=== PATIENT | female | born 1955 | race Caucasian/White ===

== ENCOUNTER → 2017-12-16 | Outpatient (CLI) | payer OTHER ==
[~2017-12-16] MED LIST: B12/1CAP; BP MED; LISI-552 PO; PRM25T PO
== END ==
LOC: CARD 09:58
PROVIDERS: ATTEND Nurse Practitioner Family
DX: R07.9 Chest pain, unspecified (principal); R00.2 Palpitations
CPT/HCPCS: 93005

== ENCOUNTER → 2017-12-16 | Outpatient (CLI) | payer OTHER ==
[2017-12-16 11:00] LABS: BASOPHILS % (AUTO) 0 % (0-10); EOSINOPHILS # (AUTO) 0.1 10^3/uL (0.0-0.3); EOSINOPHILS % (AUTO) 1 % (0-10); HEMATOCRIT 36 % (35-52); HEMOGLOBIN 12.5 G/DL (11.5-16.0); LYMPHOCYTES % (AUTO) 49 % (12-44); MEAN CORPUSCULAR HEMOGLOBIN 33 PG (25-34); MEAN CORPUSCULAR HGB CONC 34 G/DL (32-36); MEAN CORPUSCULAR VOLUME 97 FL (80-99); MEAN PLATELET VOLUME 12.6 FL (7.4-10.4); MONOCYTES # (AUTO) 0.4 X 10^3 (0.0-1.0); MONOCYTES % (AUTO) 10 % (0-12); NEUTROPHILS # (AUTO) 1.7 X 10^3 (1.8-7.8); NEUTROPHILS % (AUTO) 40 % (42-75); PLATELET COUNT 177 10^3/uL (130-400); RED BLOOD COUNT 3.74 10^6/uL (4.35-5.85); RED CELL DISTRIBUTION WIDTH 12.2 % (10.0-14.5); WHITE BLOOD COUNT 4.1 10^3/uL (4.3-11.0)
[2017-12-16 11:21] LABS: ALANINE AMINOTRANSFERASE 18 U/L (0-55); ALBUMIN 4.6 GM/DL (3.2-4.5); ALKALINE PHOSPHATASE 59 U/L (40-136); BILIRUBIN,TOTAL 0.6 MG/DL (0.1-1.0); BUN/CREATININE RATIO 19; CALCIUM 9.8 MG/DL (8.5-10.1); CARBON DIOXIDE 26 MMOL/L (21-32); CHLORIDE 103 MMOL/L (98-107); CHOLESTEROL 245 MG/DL (< 200); CREATINE KINASE 58 U/L (29-168); CREATININE SERUM 0.62 MG/DL (0.60-1.30); GFR ESTIMATED > 60; GLUCOSE 96 MG/DL (70-105); HDL CHOLESTEROL 89 MG/DL (40-60); POTASSIUM 4.1 MMOL/L (3.6-5.0); SODIUM 139 MMOL/L (135-145); TOTAL PROTEIN 7.3 GM/DL (6.4-8.2); TRIGLYCERIDES 77 MG/DL (<150); VLDL CHOLESTEROL 15 MG/DL (5-40)
[2017-12-16 11:55] LABS: ERYTHROCYTE SEDIMENTATION RATE 17 MM/HR (0-30)
== END ==
LOC: LAB 10:42
PROVIDERS: ATTEND Urology
DX: D64.9 Anemia, unspecified (principal); R07.9 Chest pain, unspecified; M79.1 Myalgia
CPT/HCPCS: 36415; 80053; 80061; 82550; 82728; 83540; 84443; 84484; 85025; 85652; 86038; 86060; 86430

== ENCOUNTER 2019-10-23 13:12 | Emergency (ER) | payer SELFPAY ==
[~2019-10-23] VITALS: Ht 172.7 cm; Wt 72.7 kg
[2019-10-23] MEDS ORDERED: ASPIRIN 81 MG CHEW (CHILDREN'S ASA) PO ONE (13:30)
--- NOTE | 2019-10-23 13:33 | NUR ---
Attempted to contact pt via phone [phone]) [phone] with no answer.
[2019-10-23] MEDS ORDERED: NS IV 1000 ML 1,000 ML IV SCH (13:45)
[2019-10-23] MEDS ORDERED: ONDANSETRON 4 MG/2 ML (SDV) Z0FRAN IVP ONE (13:45)
[2019-10-23] MEDS ORDERED: KETOROLAC 30 MG/ML VIAL IVP ONE (13:45)
--- NOTE | 2019-10-23 13:45 | ED General ---
General Stated Complaint: COUGH Source of Information: Patient Exam Limitations: No Limitations History of Present Illness Date Seen by Provider: Oct 23, 2019 Time Seen by Provider: 13:43 Initial Comments to ER with reports of cough,shortness of breath, upper mid back pain, nausea, diarrhea. Present for 3 days. Timing/Duration: 2-3 Days Severity: Moderate Associated Systoms: Cough, Nausea/Vomiting Allergies and Home Medications Allergies Coded Allergies: Penicillins (Unverified Allergy, Mild, 01/25/09) Home Medications Lisinopril 20 Mg Tablet, 20 MG PO DAILY, (Reported) Ondansetron 4 Mg Tab.rapdis, 4 MG PO Q4H PRN for NAUSEA/VOMITING Prescribed by: ALBER CUEVAS on 10/23/19 1446 Patient Home Medication List Home Medication List Reviewed: Yes Review of Systems Review of Systems Constitutional: see HPI EENTM: see HPI Respiratory: no symptoms reported Cardiovascular: no symptoms reported Genitourinary: no symptoms reported Musculoskeletal: no symptoms reported Skin: no symptoms reported Psychiatric/Neurological: No Symptoms Reported Hematologic/Lymphatic: No Symptoms Reported Immunological/Allergic: no symptoms reported Physical Exam Vital Signs Vital Signs - First Documented 10/23/19 13:35 Temp 37.1 Pulse 83 Resp 20 B/P (MAP) 160/80 (106) Pulse Ox 98 O2 Delivery Room Air Capillary Refill : Height, Weight, BMI Height: 5'6" Weight: 140lbs. oz. 63.122532bz; BMI Method:Stated General Appearance: No Apparent Distress, WD/WN Eyes: Bilateral Eye Normal Inspection, Bilateral Eye PERRL, Bilateral Eye EOMI Neck: Full Range of Motion, Normal Inspection Respiratory: No Accessory Muscle Use, No Respiratory Distress Cardiovascular: Regular Rate, Rhythm, Normal Peripheral Pulses Gastrointestinal: Normal Bowel Sounds, Non Tender, Soft Extremity: Normal Capillary Refill, Normal Inspection Neurologic/Psychiatric: Alert, Oriented x3 Skin: Normal Color, Warm/Dry Progress/Results/Core Measures Suspected Sepsis SIRS Temperature: Pulse: Respiratory Rate: Laboratory Tests 10/23/19 13:47: White Blood Count 8.1 Blood Pressure / Mean: Laboratory Tests 10/23/19 13:47: Creatinine 0.66, INR Comment 0.9, Platelet Count 178, Total Bilirubin 0.5 Results/Orders Lab Results Laboratory Tests Test 10/23/19 13:47 10/23/19 13:50 Range/Units White Blood Count 8.1 4.3-11.0 10^3/uL Red Blood Count 3.94 L 4.35-5.85 10^6/uL Hemoglobin 12.9 11.5-16.0 G/DL Hematocrit 37 35-52 % Mean Corpuscular Volume 95 80-99 FL Mean Corpuscular Hemoglobin 33 25-34 PG Mean Corpuscular Hemoglobin Concent 35 32-36 G/DL Red Cell Distribution Width 11.9 10.0-14.5 % Platelet Count 178 130-400 10^3/uL Mean Platelet Volume 13.1 H 7.4-10.4 FL Neutrophils (%) (Auto) 70 42-75 % Lymphocytes (%) (Auto) 22 12-44 % Monocytes (%) (Auto) 8 0-12 % Eosinophils (%) (Auto) 1 0-10 % Basophils (%) (Auto) 0 0-10 % Neutrophils # (Auto) 5.6 1.8-7.8 X 10^3 Lymphocytes # (Auto) 1.8 1.0-4.0 X 10^3 Monocytes # (Auto) 0.6 0.0-1.0 X 10^3 Eosinophils # (Auto) 0.0 0.0-0.3 10^3/uL Basophils # (Auto) 0.0 0.0-0.1 10^3/uL Prothrombin Time 12.5 12.2-14.7 SEC INR Comment 0.9 0.8-1.4 Activated Partial Thromboplast Time 27 24-35 SEC D-Dimer 0.49 0.00-0.49 UG/ML Sodium Level 135 135-145 MMOL/L Potassium Level 4.2 3.6-5.0 MMOL/L Chloride Level 100 98-107 MMOL/L Carbon Dioxide Level 21 21-32 MMOL/L Anion Gap 14 5-14 MMOL/L Blood Urea Nitrogen 14 7-18 MG/DL Creatinine 0.66 0.60-1.30 MG/DL Estimat Glomerular Filtration Rate > 60 BUN/Creatinine Ratio 21 Glucose Level 108 H 70-105 MG/DL Calcium Level 9.9 8.5-10.1 MG/DL Corrected Calcium 8.5-10.1 MG/DL Magnesium Level 1.8 1.6-2.4 MG/DL Total Bilirubin 0.5 0.1-1.0 MG/DL Aspartate Amino Transf (AST/SGOT) 21 5-34 U/L Alanine Aminotransferase (ALT/SGPT) 16 0-55 U/L Alkaline Phosphatase 67 40-136 U/L Myoglobin 25.9 10.0-92.0 NG/ML Troponin I < 0.028 <0.028 NG/ML B-Type Natriuretic Peptide 13.3 <100.0 PG/ML Total Protein 7.8 6.4-8.2 GM/DL Albumin 4.8 H 3.2-4.5 GM/DL Lipase 34 8-78 U/L My Orders Orders - ALBER CUEVAS APRN Cbc With Automated Diff (10/23/19 13:21) Magnesium (10/23/19 13:21) Chest 1 View, Ap/Pa Only (10/23/19 13:21) Ekg Tracing (10/23/19 13:21) Comprehensive Metabolic Panel (10/23/19 13:21) Myoglobin Serum (10/23/19 13:21) Protime With Inr (10/23/19 13:21) Partial Thromboplastin Time (10/23/19 13:21) O2 (10/23/19 13:21) Monitor-Rhythm Ecg Trace Only (10/23/19 13:21) Lipid Panel (10/24/19 06:00) Ed Iv/Invasive Line Start (10/23/19 13:21) BNP (10/23/19 13:21) Fibrin Degradation Products (10/23/19 13:21) Troponin I (10/23/19 13:21) Aspirin Chewable Tablet (Baby Aspirin Ch (10/23/19 13:30) Lipase (10/23/19 13:37) Ondansetron Injection (Zofran Injectio (10/23/19 13:45) Ketorolac Injection (Toradol Injection) (10/23/19 13:45) Ns Iv 1000 Ml (Sodium Chloride 0.9%) (10/23/19 13:45) Coronavirus Sars-Cov-2 So 2018 (10/23/19 13:45) Medications Given in ED Current Medications Medications Dose Ordered Sig/Saeid Route Start Time Stop Time Status Last Admin Dose Admin Aspirin 324 mg ONCE ONCE PO 10/23/19 13:30 10/23/19 13:31 DC 10/23/19 14:00 324 MG Ketorolac Tromethamine 15 mg ONCE ONCE IVP 10/23/19 13:45 10/23/19 13:46 DC 10/23/19 14:01 15 MG Ondansetron HCl 8 mg ONCE ONCE IVP 10/23/19 13:45 10/23/19 13:46 DC 10/23/19 14:01 8 MG Vital Signs/I&O 10/23/19 13:35 Temp 37.1 Pulse 83 Resp 20 B/P (MAP) 160/80 (106) Pulse Ox 98 O2 Delivery Room Air Capillary Refill : Diagnostic Imaging Diagonstic Imaging: CT Comments NAME: ETELVINA FALK [facility] REC#: [id number] PT STATUS: REG ER : 1955 PHYSICIAN: ALBER CUEVAS APRN ADMIT DATE: 10/23/19/ER Draft Date of Exam:10/23/19 CHEST 1 VIEW, AP/PA ONLY INDICATION: Shortness of breath, dyspnea. COMPARISON: None available. TECHNIQUE: Single radiograph of the chest dated 10/23/2019. FINDINGS: The cardiac silhouette is within normal limits in size. No significant pulmonary vascular congestion. The lungs are clear. No pleural effusion. No pneumothorax. No acute osseous abnormality. IMPRESSION: No acute cardiopulmonary abnormality. Dictated on workstation # [id number] Dict: 10/23/19 1421 Trans: 10/23/19 1423 [id number] Interpreted by: DALE NINO MD Electronically signed by: Departure Communication (Admissions) [id number]-Feeling much better, will dc to home. Impression Primary Impression: Viral syndrome Disposition: HOME, SELF-CARE Condition: Stable Departure-Patient Inst. Decision time for Depature: 14:45 Referrals: FAREED TORREZ DO (PCP/Family) Primary Care Physician Patient Instructions: Viral Syndrome (DC) Add. Discharge Instructions: 1. Tylenol and ibuprofen for body aches or fevers 2. Nausea medication as needed 3. Drink plenty of fluids 4. Follow-up with your doctor this week.COVID-19 swab should be resulted within about 24-48 hours. Scripts Ondansetron (Ondansetron Odt) 4 Mg Tab.rapdis 4 MG PO Q4H PRN for NAUSEA/VOMITING, #10 TAB Prov: ALBER CUEVAS APRN 10/23/19 Work/School Note: Work Release Form Date Seen in the Emergency Department: Oct 23, 2019 Return to Work: Oct 26, 2019 Copy Copies To 1: FAREED TORREZ PETER J APRN Oct 23, 2019 13:45
[2019-10-23 14:05] LABS: BASOPHILS % (AUTO) 0 % (0-10); EOSINOPHILS % (AUTO) 1 % (0-10); HEMATOCRIT 37 % (35-52); HEMOGLOBIN 12.9 G/DL (11.5-16.0); LYMPHOCYTES # (AUTO) 1.8 X 10^3 (1.0-4.0); LYMPHOCYTES % (AUTO) 22 % (12-44); MEAN CORPUSCULAR HEMOGLOBIN 33 PG (25-34); MEAN CORPUSCULAR HGB CONC 35 G/DL (32-36); MEAN CORPUSCULAR VOLUME 95 FL (80-99); MEAN PLATELET VOLUME 13.1 FL (7.4-10.4); MONOCYTES # (AUTO) 0.6 X 10^3 (0.0-1.0); MONOCYTES % (AUTO) 8 % (0-12); NEUTROPHILS # (AUTO) 5.6 X 10^3 (1.8-7.8); NEUTROPHILS % (AUTO) 70 % (42-75); PLATELET COUNT 178 10^3/uL (130-400); RED CELL DISTRIBUTION WIDTH 11.9 % (10.0-14.5); WHITE BLOOD COUNT 8.1 10^3/uL (4.3-11.0)
[2019-10-23 14:22] LABS: ALBUMIN 4.8 GM/DL (3.2-4.5)
[2019-10-23 14:23] LABS: CHLORIDE 100 MMOL/L (98-107); INR 0.9 (0.8-1.4); POTASSIUM 4.2 MMOL/L (3.6-5.0); PROTHROMBIN TIME PATIENT 12.5 SEC (12.2-14.7); SODIUM 135 MMOL/L (135-145)
--- NOTE | 2019-10-23 14:23 | Diagnostic Imaging Report ---
INDICATION: Shortness of breath, dyspnea. COMPARISON: None available. TECHNIQUE: Single radiograph of the chest dated 10/23/2019. FINDINGS: The cardiac silhouette is within normal limits in size. No significant pulmonary vascular congestion. The lungs are clear. No pleural effusion. No pneumothorax. No acute osseous abnormality. IMPRESSION: No acute cardiopulmonary abnormality. Dictated by: Dictated on workstation # [id number]
[2019-10-23 14:24] LABS: CALCIUM 9.9 MG/DL (8.5-10.1)
[2019-10-23 14:25] LABS: GLUCOSE 108 MG/DL (70-105); TOTAL PROTEIN 7.8 GM/DL (6.4-8.2)
[2019-10-23 14:26] LABS: CARBON DIOXIDE 21 MMOL/L (21-32)
[2019-10-23 14:27] LABS: BILIRUBIN,TOTAL 0.5 MG/DL (0.1-1.0)
[2019-10-23 14:28] LABS: ALKALINE PHOSPHATASE 67 U/L (40-136); CREATININE SERUM 0.66 MG/DL (0.60-1.30); GFR ESTIMATED > 60
[2019-10-23 14:30] LABS: BUN/CREATININE RATIO 21; LIPASE 34 U/L (8-78)
[2019-10-23 14:31] LABS: ALANINE AMINOTRANSFERASE 16 U/L (0-55)
[2019-10-23 14:32] LABS: MAGNESIUM 1.8 MG/DL (1.6-2.4)
[2019-10-23] MEDS ORDERED: ONDA4TAB11 PO (14:46)
[2019-10-23 15:04] VITALS: BP 152/73
== END 2019-10-23 15:04 | disposition home or self-care (01) ==
LOC: EDUNIT# 13:12 → ER 13:14
DX: B34.9 Viral infection, unspecified (principal); Z88.0 Allergy status to penicillin; Z20.828 Contact with and (suspected) exposure to other viral communicable diseases
CPT/HCPCS: 36415; 71045; 80053; 83690; 83735; 83874; 83880; 84484; 85025; 85379; 85610; 85730; 87635; 93041

== ENCOUNTER → 2021-09-17 | Outpatient (CLI) | payer OTHER ==
[~2021-09-17] VITALS: Ht 173 cm; Wt 76.7 kg
[~2021-09-17] MED LIST changes: -LISI-552 PO; +LISI20TA26 PO; +ONDA4TAB11 PO
== END | disposition home or self-care (01) ==
LOC: PREOP 05:41
PROVIDERS: ATTEND Surgery
DX: Z01.818 Encounter for other preprocedural examination (principal)

== ENCOUNTER 2021-10-29 11:40 | Emergency (ER) | payer OTHER ==
[~2021-10-29] VITALS: Ht 172.7 cm; Wt 72.0 kg
--- NOTE | 2021-10-29 12:08 | ED General ---
General Chief Complaint: Neurological Problems Stated Complaint: HIGH BP 200/190 Source of Information: Patient Exam Limitations: No Limitations (NARCISO CRYSTAL) History of Present Illness Date Seen by Provider: Oct 29, 2021 Time Seen by Provider: 12:04 Initial Comments Patient is a 65-year-old female with a history of hypertension, dyslipidemia who presents to the ED for neurological complaints. Patient states around 9:00 she was setting at home started having a throbbing posterior head pain with some mild dizziness blurry vision and tingling in her arms. She states she went to [facility] and was sent to the ER for further evaluation. Patient blood pressure on arrival was 200/110. On arrival symptoms have completely resolved. She states she has had similar symptoms in the past that typically do not last as long. She had no chest pain, short of breath cough or abdominal pain during this episode. She denies of any flulike symptoms. Denies history of migraines. She has no unilateral muscle weakness, facial droop, slurred speech, severe worsening head pain, loss of vision, nausea, vomiting, diarrhea. (NARCISO CRYSTAL) Allergies and Home Medications Allergies Coded Allergies: Penicillins (Unverified Allergy, Mild, 01/25/09) Patient Home Medication List Home Medication List Reviewed: Yes (NARCISO CRYSTAL) Lisinopril (Lisinopril) 20 Mg Tablet, 20 MG PO DAILY, (Reported) Entered as Reported by: CHITRA MENENDEZ on 04/29/161952 Ondansetron (Ondansetron Odt) 4 Mg Tab.rapdis, 4 MG PO Q4H PRN for NAUSEA/VOMITING Prescribed by: ALBER CUEVAS on 10/23/19 1446 Review of Systems Review of Systems Constitutional: No chills, No diaphoresis, No malaise, No weakness EENTM: No ear pain, No blurred vision, No double vision, No vision loss Respiratory: No cough, No short of breath Cardiovascular: No chest pain Gastrointestinal: No abdominal pain, No diarrhea, No nausea Musculoskeletal: No back pain, No joint pain Skin: No change in color, No change in hair/nails Psychiatric/Neurological: Headache, Paresthesia (NARCISO CRYSTAL) All Other Systems Reviewed Negative Unless Noted: Yes (NARCISO CRYSTAL) Past Exqdphp-Zexcvc-Uyzrua Hx Seasonal Allergies Seasonal Allergies: No (NARCISO CRYSTAL) Past Medical History Surgeries: No Respiratory: No Cardiac: Yes Hypertension Neurological: No Genitourinary: No Gastrointestinal: No Musculoskeletal: No Endocrine: No HEENT: No Cancer: No Psychosocial: No Integumentary: No (NARCISO CRYSTAL) Physical Exam Vital Signs Vital Signs - First Documented 10/29/21 11:52 Temp 36.1 Pulse 74 Resp 18 B/P (MAP) 158/104 (122) Pulse Ox 99 (RANDY HEBERT MD) Vital Signs Capillary Refill : (NARCISO CRYSTAL) Height, Weight, BMI Height: 5'6" Weight: 140lbs. oz. 63.465227ly; 25.62 BMI Method:Stated General Appearance: No Apparent Distress, WD/WN Eyes: Bilateral Eye Normal Inspection, Bilateral Eye PERRL, Bilateral Eye Abnormal EOM HEENT: PERRL/EOMI, TMs Normal, Normal ENT Inspection, Pharynx Normal Neck: Full Range of Motion, Normal Inspection, Non Tender, Supple Respiratory: Chest Non Tender, Lungs Clear, Normal Breath Sounds, No Accessory Muscle Use Cardiovascular: Regular Rate, Rhythm, No Edema, No Gallop, No JVD Gastrointestinal: Normal Bowel Sounds, No Organomegaly, Non Tender Back: Normal Inspection, No CVA Tenderness Extremity: Normal Capillary Refill, Normal Inspection, Normal Range of Motion, Non Tender, No Calf Tenderness Neurologic/Psychiatric: Alert, Oriented x3, No Motor/Sensory Deficits, Normal Mood/Affect, rd project manager II-XII Norm as Tested Skin: Normal Color, Warm/Dry (NARCISO CRYSTAL) Progress/Results/Core Measures Suspected Sepsis SIRS Temperature: Pulse: Respiratory Rate: Laboratory Tests 10/29/21 12:13: White Blood Count 5.6 Blood Pressure / Mean: Laboratory Tests 10/29/21 12:13: Creatinine 0.74, Platelet Count 159, Total Bilirubin 0.7 (NARCISO CRYSTAL) Results/Orders Lab Results Laboratory Tests Test 10/29/21 12:13 10/29/21 13:04 Range/Units White Blood Count 5.6 4.3-11.0 10^3/uL Red Blood Count 3.54 L 3.80-5.11 10^6/uL Hemoglobin 11.8 11.5-16.0 g/dL Hematocrit 35 35-52 % Mean Corpuscular Volume 98 80-99 fL Mean Corpuscular Hemoglobin 33 25-34 pg Mean Corpuscular Hemoglobin Concent 34 32-36 g/dL Red Cell Distribution Width 11.9 10.0-14.5 % Platelet Count 159 130-400 10^3/uL Mean Platelet Volume 13.0 H 9.0-12.2 fL Immature Granulocyte % (Auto) 0 % Neutrophils (%) (Auto) 53 42-75 % Lymphocytes (%) (Auto) 35 12-44 % Monocytes (%) (Auto) 10 0-12 % Eosinophils (%) (Auto) 1 0-10 % Basophils (%) (Auto) 0 0-10 % Neutrophils # (Auto) 3.0 1.8-7.8 10^3/uL Lymphocytes # (Auto) 2.0 1.0-4.0 10^3/uL Monocytes # (Auto) 0.6 0.0-1.0 10^3/uL Eosinophils # (Auto) 0.1 0.0-0.3 10^3/uL Basophils # (Auto) 0.0 0.0-0.1 10^3/uL Immature Granulocyte # (Auto) 0.0 0.0-0.1 10^3/uL Neutrophils % (Manual) 51 % Lymphocytes % (Manual) 37 % Monocytes % (Manual) 8 % Eosinophils % (Manual) 3 % Reactive Lymphocytes 1 % Blood Morphology Comment NORMAL Sodium Level 135 135-145 MMOL/L Potassium Level 3.8 3.6-5.0 MMOL/L Chloride Level 99 98-107 MMOL/L Carbon Dioxide Level 24 21-32 MMOL/L Anion Gap 12 5-14 MMOL/L Blood Urea Nitrogen 14 7-18 MG/DL Creatinine 0.74 0.60-1.30 MG/DL Estimat Glomerular Filtration Rate 91 BUN/Creatinine Ratio 19 Glucose Level 102 70-105 MG/DL Calcium Level 9.5 8.5-10.1 MG/DL Corrected Calcium 9.1 8.5-10.1 MG/DL Magnesium Level 1.6 1.6-2.4 MG/DL Total Bilirubin 0.7 0.1-1.0 MG/DL Aspartate Amino Transf (AST/SGOT) 22 5-34 U/L Alanine Aminotransferase (ALT/SGPT) 26 0-55 U/L Alkaline Phosphatase 69 40-136 U/L Troponin I < 0.028 <0.028 NG/ML B-Type Natriuretic Peptide 22.6 <100.0 PG/ML Total Protein 7.1 6.4-8.2 GM/DL Albumin 4.5 3.2-4.5 GM/DL Urine Color YELLOW Urine Clarity CLEAR Urine pH 6.0 5-9 Urine Specific Jolon 1.010 L 1.016-1.022 Urine Protein NEGATIVE NEGATIVE Urine Glucose (UA) NEGATIVE NEGATIVE Urine Ketones NEGATIVE NEGATIVE Urine Nitrite NEGATIVE NEGATIVE Urine Bilirubin NEGATIVE NEGATIVE Urine Urobilinogen 0.2 < = 1.0 MG/DL Urine Leukocyte Esterase TRACE H NEGATIVE Urine RBC (Auto) NEGATIVE NEGATIVE Urine RBC RARE /HPF Urine WBC 0-2 /HPF Urine Squamous Epithelial Cells 2-5 /HPF Urine Crystals NONE /LPF Urine Bacteria TRACE /HPF Urine Casts NONE /LPF Urine Mucus NEGATIVE /LPF Urine Culture Indicated NO (RANDY HEBERT MD) Vital Signs/I&O 10/29/21 10/29/21 11:52 13:14 Temp 36.1 Pulse 74 68 Resp 18 18 B/P (MAP) 158/104 (122) 144/82 Pulse Ox 99 99 (RANDY HEBERT MD) Vital Signs/I&O Capillary Refill : (NARCISO CRYSTAL) ECG Comment Sinus rhythm with occasional ventricular premature complexes, 68 bpm, QRS duration 107 MS, QTc 389 MS (NARCISO CRYSTAL) Departure Communication (PCP) Patient was transferred by POV from the clinic for elevated blood pressure, headache and paresthesias in her arms bilateral. On arrival patient's symptoms improved. She had a blood pressure of 200 110 at the clinic. She is currently on hydrochlorothiazide/lisinopril, and metoprolol. Blood pressure improved here without any intervention. Symptoms improved as well. NIH is 0. CT scan head unremarkable. Cardiac work-up was otherwise unremarkable. EKG without evidence of ST elevation depression. She has no urinary symptoms. Lab work was otherwise reassuring. She remained asymptomatic here in the ED. She is requesting to be discharged. She states she has had similar symptoms in the past. Unclear this was secondary to elevated blood pressure. Once again she had no strokelike symptoms on arrival. No history of stroke, cancer. She had a stress test in 2008 that showed exercise hypertension. 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 She wants to go home and rest. Continue monitoring symptoms at home. If any worsening symptoms such as chest pain, headache, any focal neural deficits such as unilateral muscle weakness or sensory changes facial droop to return back to ED for further evaluation. Follow-up with your primary care physician 2 to 3 days for reevaluation. (NARCISO CRYSTAL) Impression Primary Impression: Elevated blood pressure reading Disposition: HOME, SELF-CARE Condition: Stable Departure-Patient Inst. Decision time for Depature: 13:10 (NARCISO CRYSTAL) Referrals: [facility] [place] ([place]) Primary Care Physician YESI MARTINO (Family) Primary Care Physician Patient Instructions: High Blood Pressure (DC) Add. Discharge Instructions: Continue monitoring symptoms at home. If any worsening symptoms return back to ED. Follow-up with your primary care physician for further evaluation. All discharge instructions reviewed with patient and/or family. Voiced understanding. ATTENDING PHYSICIAN NOTE: I was physically present as attending physician in the emergency department during the care of this patient, but I was not directly involved in the decision making or delivery of care for this patient. (RANDY HEBERT MD) NARCISO CRYSTAL Oct 29, 2021 12:08 RANDY HEBERT MD Oct 29, 2021 20:54
[2021-10-29 12:21] LABS: BASOPHILS % (AUTO) 0 % (0-10); EOSINOPHILS # (AUTO) 0.1 10^3/uL (0.0-0.3); EOSINOPHILS % (AUTO) 1 % (0-10); HEMATOCRIT 35 % (35-52); HEMOGLOBIN 11.8 g/dL (11.5-16.0); LYMPHOCYTES % (AUTO) 35 % (12-44); MEAN CORPUSCULAR HEMOGLOBIN 33 pg (25-34); MEAN CORPUSCULAR HGB CONC 34 g/dL (32-36); MEAN CORPUSCULAR VOLUME 98 fL (80-99); MONOCYTES # (AUTO) 0.6 10^3/uL (0.0-1.0); MONOCYTES % (AUTO) 10 % (0-12); NEUTROPHILS % (AUTO) 53 % (42-75); PLATELET COUNT 159 10^3/uL (130-400); WHITE BLOOD COUNT 5.6 10^3/uL (4.3-11.0)
[2021-10-29 12:44] LABS: ALBUMIN 4.5 GM/DL (3.2-4.5); CHLORIDE 99 MMOL/L (98-107); POTASSIUM 3.8 MMOL/L (3.6-5.0); SODIUM 135 MMOL/L (135-145)
[2021-10-29 12:45] LABS: CALCIUM 9.5 MG/DL (8.5-10.1)
[2021-10-29 12:46] LABS: GLUCOSE 102 MG/DL (70-105)
[2021-10-29 12:47] LABS: TOTAL PROTEIN 7.1 GM/DL (6.4-8.2)
[2021-10-29 12:48] LABS: BILIRUBIN,TOTAL 0.7 MG/DL (0.1-1.0); CARBON DIOXIDE 24 MMOL/L (21-32)
[2021-10-29 12:50] LABS: ALKALINE PHOSPHATASE 69 U/L (40-136); CREATININE SERUM 0.74 MG/DL (0.60-1.30); GFR ESTIMATED 91
[2021-10-29 12:51] LABS: BUN/CREATININE RATIO 19
[2021-10-29 12:53] LABS: ALANINE AMINOTRANSFERASE 26 U/L (0-55); MAGNESIUM 1.6 MG/DL (1.6-2.4)
--- NOTE | 2021-10-29 12:53 | Diagnostic Imaging Report ---
EXAMINATION: Chest 1 view HISTORY: chest pain COMPARISON: 10/23/2019 FINDINGS: Heart size and pulmonary vasculature are normal. The lungs are clear without consolidation, pleural effusion, or pneumothorax. Degenerative changes of the thoracic spine. Osseous structures are otherwise intact. IMPRESSION: 1. No acute radiographic abnormality in the chest. Dictated by: Dictated on workstation # [id number]
[2021-10-29 12:55] LABS: EOSINOPHILS % (MANUAL) 3 %; LYMPHOCYTES % (MANUAL) 37 %; MONOCYTES % (MANUAL) 8 %; NEUTROPHILS % (MANUAL) 51 %; RBC MORPH NORMAL; REACTIVE LYMPHOCYTES 1 %
--- NOTE | 2021-10-29 12:59 | Diagnostic Imaging Report ---
PROCEDURE: CT head without contrast. TECHNIQUE: Multiple contiguous axial images were obtained through the brain without the use of intravenous contrast. Auto Exposure Controls were utilized during the CT exam to meet ALARA standards for radiation dose reduction. INDICATION: Numbness in the hands and in the back of the head. Patient reports a history of hypertension. COMPARISON: Exam compared to 04/29/2016. FINDINGS: There has been no interval change. There is no hemorrhage, hydrocephalus, edema, mass, mass effect, or other acute abnormalities. There is no hydrocephalus. The basilar cisterns are patent. No sulcal effacement. Some calcifications of the falx and dura, chronic. Maldonado-white matter differentiation is maintained. No sulcal effacement. No acute-appearing abnormality. IMPRESSION: Stable unremarkable CT head. Dictated by: Dictated on workstation # [id number]
[2021-10-29 13:14] VITALS: BP 144/82
[2021-10-29 13:15] LABS: BILIRUBIN,URINE NEGATIVE (NEGATIVE); CLARITY,URINE CLEAR; COLOR,URINE YELLOW; GLUCOSE, URINE (UA) NEGATIVE (NEGATIVE); KETONES,URINE NEGATIVE (NEGATIVE); LEUKOCYTE ESTERASE ,URINE TRACE (NEGATIVE); NITRITE,URINE NEGATIVE (NEGATIVE); PROTEIN,URINE NEGATIVE (NEGATIVE)
[2021-10-29 13:41] LABS: BACTERIA,URINE TRACE /HPF; RBC,URINE RARE /HPF; WBC,URINE 0-2 /HPF
== END 2021-10-29 13:15 | disposition home or self-care (01) ==
LOC: EDUNIT# 11:40 → ER 11:42
DX: I10 Essential (primary) hypertension (principal); Z79.899 Other long term (current) drug therapy; Z28.310 Unvaccinated for COVID-19
CPT/HCPCS: 36415; 70450; 71045; 80053; 81000; 83735; 83880; 84484; 85007; 85027; 93005